=== PATIENT | male | born 1975 | race Caucasian/White ===

== ENCOUNTER 2022-11-10 11:54 | Inpatient (IN) | payer MEDICARE, OTHER ==
[~2022-11-10] VITALS: Ht 177.8 cm; Wt 70.3 kg
[2022-11-10] MEDS ORDERED: DIATR MEGLU/DIATRIZOATE SODIUM 30 ML BOTTLE ONE (12:15)
--- NOTE | 2022-11-10 12:16 | NUR ---
Pt arrived in the ED [facility] w/ c/o G-Tube malfunction. Pt denies pain on the stoma, presented swelling and redness. Resistance upon administration of water. Pt denies pain. Seen by Dr. Rose for MSE.
[2022-11-10] MEDS ORDERED: METO25TA6 GT (13:52)
[2022-11-10] MEDS ORDERED: ATOR40TA GT (13:52)
[2022-11-10] MEDS ORDERED: INSU100I19 SQ (13:52)
[2022-11-10] MEDS ORDERED: METF-494 GT (13:52)
[2022-11-10] MEDS ORDERED: MULT-594 GT (13:52)
[2022-11-10] MEDS ORDERED: INSU100V42 (13:52)
[2022-11-10] MEDS ORDERED: DOCU100C36 GT (13:52)
[2022-11-10] MEDS ORDERED: RISP1TAB97 PO (13:52)
[2022-11-10] MEDS ORDERED: PANT40TA49 GT (13:52)
[2022-11-10] MEDS ORDERED: CLOZ100T32 GT (13:52)
[2022-11-10] MEDS ORDERED: ALUM320O4 GT (13:52)
[2022-11-10] MEDS ORDERED: FERR325T28 GT (13:52)
[2022-11-10] MEDS ORDERED: GABA-532 GT (13:52)
[2022-11-10] MEDS ORDERED: OXCA150T5 GT (13:52)
[2022-11-10] MEDS ORDERED: ACET-2154 GT (13:52)
[2022-11-10] MEDS ORDERED: RISP2TAB85 GT (13:52)
[2022-11-10] MEDS ORDERED: LOSA25TA27 GT (13:52)
[2022-11-10 14:09] LABS: CREATININE 0.7 mg/dL (0.6-1.3); POTASSIUM 4.2 mmol/L (3.5-5.1)
--- NOTE | 2022-11-10 14:23 | NUR ---
Pt's sister Aster Burden called, phone # [phone]. Pt made aware.
[2022-11-10] MEDS ORDERED: PIPERACILLIN SODIUM/TAZOBACTAM 3.375 G in IV DEXTROSE 5% 50 ML IV ONE (14:30)
[2022-11-10] MEDS ORDERED: VANCOMYCIN IV 1,000 MG in IV DEXTROSE 5% 250 ML IV ONE (14:30)
[2022-11-10] MEDS ORDERED: IV NORMAL SALINE 1000 ML BAG IV ONE (14:30)
[2022-11-10] MEDS ORDERED: PIPERACILLIN/TAZOBACTAM/D5W 50 ML IV ONE (15:08)
[2022-11-10] MEDS ORDERED: VANCOMYCIN IV 200 ML ONE (15:08)
[2022-11-10 15:11] LABS: BILIRUBIN,DIRECT 0.1 mg/dL (0.0-0.2); BILIRUBIN,TOTAL 0.3 mg/dL (0.2-1.0); TOTAL PROTEIN, SERUM 8.5 g/dL (6.4-8.2)
[2022-11-10 15:24] LABS: HEMATOCRIT 26.3 % (36.7-47.1); MEAN CORPUSCULAR HEMOGLOBIN 26.4 uug (23.8-33.4); MEAN CORPUSCULAR VOLUME 81.5 fL (73.0-96.2); PLATELET COUNT (AUTO) 297 K/uL (152-348)
--- NOTE | 2022-11-10 16:29 | NUR ---
Gave report to [place] RN.
[2022-11-10] MEDS ORDERED: ACETAMINOPHEN 650 MG SUPP.RECT RC PRN (16:30)
[2022-11-10] MEDS ORDERED: ONDANSETRON 4 MG/2 ML VIAL IV PRN (16:30)
[2022-11-10] MEDS ORDERED: REMEDY ESSENTIAL ZINC PASTE 113 GM TP PRN (16:30)
[2022-11-10] MEDS ORDERED: DEXTROSE 50% 50 ML DISP.SYRIN IV PRN (16:45)
[2022-11-10] MEDS ORDERED: INSULIN REGULAR, HUMAN 300 UNIT/3 ML VIAL SQ PRN (16:45)
[2022-11-10 16:47] LABS: *BILIRUBIN,URIN NEGATIVE (NEGATIVE); *BLOOD, URINE NEGATIVE (NEGATIVE); *CLARITY,URINE CLEAR (CLEAR); *COLOR,URINE YELLOW (YELLOW); *KETONES,URINE NEGATIVE (NEGATIVE); *UROBILINOGEN,URINE 0.2 E.U./dl (NORMAL); LEUKOCYTE ESTERASE ,URINE NEGATIVE (NEGATIVE); NITRITE, URINE NEGATIVE (NEGATIVE); PH,URINE 7.5 (5.0-8.0); UGLUCOSE NEGATIVE (NEGATIVE)
--- NOTE | 2022-11-10 17:23 | NUR ---
Pt in stable condition, remained afebrile, V/S WML, AOx3. Transported to [place] to room 318 under the medical care of Ruperto Mckeon NP and received by [place] RN.
--- NOTE | 2022-11-10 17:23 | NUR ---
Pt's IV Vancomycin still infusing, endorsed to [place] RN.
--- NOTE | 2022-11-10 17:30 | NUR ---
Called and left a message to Aster Bertram (pt's sister) about pt's admission status.
[2022-11-10 17:56] VITALS: BP 133/83
--- NOTE | 2022-11-10 18:30 | NUR ---
Pt alert and oriented x 4. Pt denies any co pain. G tube clamped. Noted g tube stoma redness and swollen pix. Taken. Pt ambulatory to bathroom. with good balance. Discussed with pt that he is to have nothing by mouth per MD order. Pt verbalized understanding. Oriented pt on how to use call light for nurse. IV on left F/a Intact and flushing well. Started IVF as ordered. Call light is within reach.
[2022-11-10] MEDS: IV D5/ 0.9% NACL 1,000 ML IV PRN (18:59)
[2022-11-10] MEDS: BLOOD SUGAR DIAGNOSTIC 1 EACH STRIP VI SCH (19:10)
[2022-11-10] MEDS: CEFTRIAXONE 2 G in IV DEXTROSE 5% 100 ML IV SCH (20:56)
[2022-11-10] MEDS: levETIRAcetam IV 500 MG in IV DEXTROSE 5% 100 ML IV SCH (20:58)
[2022-11-10 21:04] VITALS: BP 146/80
[2022-11-10] MEDS: HEPARIN SODIUM,PORCINE 5,000 UNITS/ML VIAL SQ SCH (21:12)
[2022-11-11] MEDS: VANCOMYCIN IV 1,250 MG in IV DEXTROSE 5% 250 ML IV SCH ×3 (00:08→16:02)
[2022-11-11] MEDS: BLOOD SUGAR DIAGNOSTIC 1 EACH STRIP VI SCH ×5 (00:20→23:36)
[2022-11-11 04:28] VITALS: BP 105/49
[2022-11-11 07:14] LABS: HEMATOCRIT 27.5 % (36.7-47.1); MEAN CORPUSCULAR HEMOGLOBIN 26.8 uug (23.8-33.4); MEAN CORPUSCULAR VOLUME 81.2 fL (73.0-96.2); PLATELET COUNT (AUTO) 288 K/uL (152-348)
[2022-11-11 07:50] LABS: CREATININE 0.7 mg/dL (0.6-1.3); MAGNESIUM 1.6 mg/dL (1.8-2.4); PHOSPHOROUS 3.4 mg/dL (2.5-4.9)
[2022-11-11] MEDS: levETIRAcetam IV 500 MG in IV DEXTROSE 5% 100 ML IV SCH ×2 (10:17→21:18)
[2022-11-11] MEDS: PANTOPRAZOLE SODIUM 40 MG VIAL IV SCH (10:18)
[2022-11-11] MEDS: HEPARIN SODIUM,PORCINE 5,000 UNITS/ML VIAL SQ SCH ×2 (10:19→20:15)
[2022-11-11] MEDS: MAGNESIUM SULFATE/D5W 100 ML IV SCH ×2 (10:20→12:29)
--- NOTE | 2022-11-11 10:30 | NUR ---
Pt passed swallow eval and ST recommends puree for lunch.
[2022-11-11 11:50] VITALS: BP 109/74
[2022-11-11] MEDS ORDERED: DOCUSATE SODIUM 100 MG CAPSULE PO PRN (12:15)
[2022-11-11] MEDS ORDERED: ACETAMINOPHEN 325 MG TABLET PO PRN (12:15)
[2022-11-11] MEDS: IV D5/ 0.9% NACL 1,000 ML IV PRN (16:00)
[2022-11-11] MEDS: OXCARBAZEPINE 150 MG TABLET PO SCH (16:11)
[2022-11-11] MEDS: METOPROLOL TARTRATE 25 MG TABLET PO SCH (16:11)
[2022-11-11] MEDS: risperiDONE 2 MG TABLET PO SCH (16:12)
[2022-11-11] MEDS ORDERED: FERR300L GT (16:20)
[2022-11-11] MEDS ORDERED: METF-440 PO (16:20)
[2022-11-11] MEDS ORDERED: GABA250S2 GT (16:20)
[2022-11-11] MEDS ORDERED: GABAPENTIN 100 MG CAPSULE PO SCH (17:00)
[2022-11-11 17:40] VITALS: BP 110/70
[2022-11-11] MEDS ORDERED: CLOZAPINE 100 MG TABLET PO SCH (18:00)
--- NOTE | 2022-11-11 19:35 | NUR ---
Received Pt from Day shift. Pt is A&Ox and cooperative. Pt has esophagogastroduodenoscopy scheduled tomorrow but at an unknown time. Pt has no G-tube. Pt is NPO. Safety measures in place. Will continue to monitor.
[2022-11-11 20:00] VITALS: BP 127/78
[2022-11-11] MEDS: CEFTRIAXONE 2 G in IV DEXTROSE 5% 100 ML IV SCH (20:04)
[2022-11-11] MEDS: CLOZAPINE 100 MG TABLET PO SCH (21:00)
[2022-11-11] MEDS: ATORVASTATIN 40 MG TABLET PO SCH (21:00)
[2022-11-11] MEDS: GABAPENTIN 100 MG CAPSULE PO SCH (22:00)
[2022-11-12] MEDS: BLOOD SUGAR DIAGNOSTIC 1 EACH STRIP VI SCH ×3 (06:01→18:00)
[2022-11-12 07:20] LABS: HEMATOCRIT 27.2 % (36.7-47.1); MEAN CORPUSCULAR HEMOGLOBIN 26.9 uug (23.8-33.4); MEAN CORPUSCULAR VOLUME 82.2 fL (73.0-96.2); PLATELET COUNT (AUTO) 279 K/uL (152-348)
[2022-11-12 07:27] VITALS: BP 139/52
[2022-11-12 07:53] LABS: CREATININE 0.8 mg/dL (0.6-1.3); MAGNESIUM 1.6 mg/dL (1.8-2.4); PHOSPHOROUS 3.3 mg/dL (2.5-4.9); POTASSIUM 4.1 mmol/L (3.5-5.1)
[2022-11-12] MEDS: GABAPENTIN 100 MG CAPSULE PO SCH ×3 (08:05→22:00)
[2022-11-12] MEDS: LOSARTAN POTASSIUM 25 MG TABLET PO SCH (08:06)
[2022-11-12] MEDS: FERROUS SULFATE 300 MG/5 ML LIQUID UDC PO SCH (08:06)
[2022-11-12] MEDS: METOPROLOL TARTRATE 25 MG TABLET PO SCH ×2 (08:07→16:41)
[2022-11-12] MEDS: risperiDONE 1 MG TABLET PO SCH (08:07)
[2022-11-12] MEDS: OXCARBAZEPINE 150 MG TABLET PO SCH ×2 (08:08→16:41)
[2022-11-12] MEDS: PANTOPRAZOLE SODIUM 40 MG VIAL IV SCH (08:18)
[2022-11-12] MEDS: levETIRAcetam IV 500 MG in IV DEXTROSE 5% 100 ML IV SCH ×2 (08:18→21:42)
[2022-11-12] MEDS: HEPARIN SODIUM,PORCINE 5,000 UNITS/ML VIAL SQ SCH ×2 (08:19→21:00)
[2022-11-12] MEDS: MAGNESIUM SULFATE/D5W 100 ML IV SCH ×2 (09:30→11:07)
[2022-11-12 12:13] VITALS: BP 104/72
--- NOTE | 2022-11-12 14:00 | NUR ---
Notified Hospitalist Timothy that No scheduled EGD set by dr Bah who is covering dr Tejeda for today. Continue to Keep pt NPO as ordered and notified pt as well. Pt was upset that his EGD with PEG was not scheduled. Therapeutic communication implemented and effective to calm pt down.
[2022-11-12] MEDS: IV D5/ 0.9% NACL 1,000 ML IV PRN (14:55)
[2022-11-12] MEDS: risperiDONE 2 MG TABLET PO SCH (16:41)
[2022-11-12 20:00] VITALS: BP 138/80
[2022-11-12] MEDS: ATORVASTATIN 40 MG TABLET PO SCH (21:00)
[2022-11-12] MEDS: CLOZAPINE 100 MG TABLET PO SCH (21:00)
[2022-11-12] MEDS: CEFTRIAXONE 2 G in IV DEXTROSE 5% 100 ML IV SCH (21:42)
[2022-11-13 04:00] VITALS: BP 108/53
[2022-11-13] MEDS: GABAPENTIN 100 MG CAPSULE PO SCH ×3 (05:17→22:02)
[2022-11-13] MEDS: BLOOD SUGAR DIAGNOSTIC 1 EACH STRIP VI SCH ×4 (05:25→17:40)
[2022-11-13 07:02] LABS: HEMATOCRIT 28.6 % (36.7-47.1); MEAN CORPUSCULAR HEMOGLOBIN 27.1 uug (23.8-33.4); MEAN CORPUSCULAR VOLUME 81.7 fL (73.0-96.2); PLATELET COUNT (AUTO) 286 K/uL (152-348)
[2022-11-13 07:15] LABS: CREATININE 0.8 mg/dL (0.6-1.3); MAGNESIUM 1.6 mg/dL (1.8-2.4); PHOSPHOROUS 3.1 mg/dL (2.5-4.9)
[2022-11-13] MEDS: PANTOPRAZOLE SODIUM 40 MG VIAL IV SCH (08:46)
[2022-11-13] MEDS: levETIRAcetam IV 500 MG in IV DEXTROSE 5% 100 ML IV SCH ×2 (08:47→22:01)
[2022-11-13] MEDS: FERROUS SULFATE 300 MG/5 ML LIQUID UDC PO SCH (08:48)
[2022-11-13] MEDS: LOSARTAN POTASSIUM 25 MG TABLET PO SCH (08:48)
[2022-11-13] MEDS: METOPROLOL TARTRATE 25 MG TABLET PO SCH ×2 (08:48→17:39)
[2022-11-13] MEDS: OXCARBAZEPINE 150 MG TABLET PO SCH ×2 (08:49→17:38)
[2022-11-13] MEDS: risperiDONE 1 MG TABLET PO SCH (08:49)
[2022-11-13] MEDS: HEPARIN SODIUM,PORCINE 5,000 UNITS/ML VIAL SQ SCH ×2 (08:51→21:00)
[2022-11-13] MEDS: VANCOMYCIN IV 1,250 MG in IV DEXTROSE 5% 250 ML IV SCH ×2 (09:48→22:01)
[2022-11-13] MEDS: IV D5/ 0.9% NACL 1,000 ML IV PRN (09:56)
[2022-11-13 12:00] VITALS: BP 132/72
[2022-11-13] MEDS: MAGNESIUM SULFATE/D5W 100 ML IV SCH ×2 (12:33→13:37)
[2022-11-13 16:00] VITALS: BP 130/72
[2022-11-13] MEDS: risperiDONE 2 MG TABLET PO SCH (17:38)
--- NOTE | 2022-11-13 19:45 | NUR ---
RECEIVED REPORT FROM [facility] SHIFT RN. PATIENT IS ALERT & ORIENTED X4, AND SPEAKS [place]. VITAL SIGNS STABLE. PATIENT VOIDS ADEQUATELY. PATIENT TOLERATES PO AND IV MEDICATIONS. NO SIGNS AND SYMPTOMS OF NAUSEA OR VOMITING NOTED. PATIENT DENIES PAIN. PATIENT'S SISTER, SERG, CALLS FOR UPDATE. RN UPDATES SISTER REGARDING HIS CARE. RN REACHED OUT TO GI MD, TERRY, REGARDING PATIENT'S PROCEDURE. NO ANSWER WAS GIVEN TO RN. RN NOTIFIES CONTROL PANEL TESTER, DAVID, REGARDING NO RESPONSE. RN EXPLAINED TO PATIENT REGARDING GETTING IN TOUCH WITH GI MD. PATIENT VERBALIZED UNDERSTANDING. RN GAVE MAGNESIUM ORDERED. NO SIGNS AND SYMPTOMS OF HYPOGLYCEMIA. NO ACUTE DISTRESS. ALL NEEDS MET AT THIS TIME. ENDORSED CARE TO STEPHAN CARPIO, FOR CONTINUATION OF CARE.
[2022-11-13 20:00] VITALS: BP 145/78
[2022-11-13] MEDS: CEFTRIAXONE 2 G in IV DEXTROSE 5% 100 ML IV SCH (22:01)
[2022-11-13] MEDS: CLOZAPINE 100 MG TABLET PO SCH (22:02)
[2022-11-13] MEDS: ATORVASTATIN 40 MG TABLET PO SCH (22:02)
[2022-11-14] MEDS: BLOOD SUGAR DIAGNOSTIC 1 EACH STRIP VI SCH ×5 (00:02→23:59)
[2022-11-14] MEDS: IV D5/ 0.9% NACL 1,000 ML IV PRN (02:23)
[2022-11-14 04:00] VITALS: BP 119/73
--- NOTE | 2022-11-14 04:58 | NUR ---
Patient awake ,alert,and oriented x4. Abdominal dressing dry and intact. D5NS infusing at 75cc per hour into right forearm.No acute distress noted. Will continue to monitor..
[2022-11-14] MEDS: GABAPENTIN 100 MG CAPSULE PO SCH ×3 (05:51→22:43)
[2022-11-14] MEDS: VANCOMYCIN IV 1,250 MG in IV DEXTROSE 5% 250 ML IV SCH (05:51)
[2022-11-14 07:09] LABS: CREATININE 0.8 mg/dL (0.6-1.3); MAGNESIUM 1.6 mg/dL (1.8-2.4); POTASSIUM 3.4 mmol/L (3.5-5.1)
[2022-11-14] MEDS: levETIRAcetam IV 500 MG in IV DEXTROSE 5% 100 ML IV SCH ×2 (09:05→22:14)
[2022-11-14] MEDS: PANTOPRAZOLE SODIUM 40 MG VIAL IV SCH (09:05)
[2022-11-14] MEDS: METOPROLOL TARTRATE 25 MG TABLET PO SCH ×2 (09:09→17:54)
[2022-11-14] MEDS: FERROUS SULFATE 300 MG/5 ML LIQUID UDC PO SCH (09:10)
[2022-11-14] MEDS: risperiDONE 1 MG TABLET PO SCH (09:10)
[2022-11-14] MEDS: LOSARTAN POTASSIUM 25 MG TABLET PO SCH (09:10)
[2022-11-14] MEDS: HEPARIN SODIUM,PORCINE 5,000 UNITS/ML VIAL SQ SCH ×2 (09:14→22:56)
[2022-11-14] MEDS: OXCARBAZEPINE 150 MG TABLET PO SCH ×2 (09:15→17:50)
[2022-11-14 11:19] VITALS: BP 126/72
[2022-11-14] MEDS: POTASSIUM CHLORIDE 50 ML IV SCH ×2 (14:01→15:24)
[2022-11-14 15:03] VITALS: BP 121/67
[2022-11-14] MEDS: MAGNESIUM SULFATE/D5W 100 ML IV SCH ×2 (15:14→16:19)
[2022-11-14] MEDS ORDERED: LIDOCAINE-MPF 2% 5 ML VIAL IJ ONE (18:00)
[2022-11-14] MEDS ORDERED: ONDANSETRON 4 MG/2 ML VIAL IV ONE (18:00)
[2022-11-14] MEDS ORDERED: PROPOFOL 200 MG/20 ML BOTTLE IV ONE (18:00)
[2022-11-14] MEDS ORDERED: METOCLOPRAMIDE HCL 10 MG/2 ML VIAL IV ONE (18:00)
[2022-11-14] MEDS ORDERED: CEFAZOLIN 1 G VIAL IM ONE (18:00)
--- NOTE | 2022-11-14 19:30 | NUR ---
Received Pt from Day shift. Pt is currently not in the room due to him receiving a peg tube placement. Pt currently in OR. Safety measures in place. Will continue to monitor.
[2022-11-14 20:00] VITALS: BP 140/81
--- NOTE | 2022-11-14 21:30 | NUR ---
Pt returned to the unit @2124. Received report from HOG SCRAPER. Pt is A&Ox3 and cooperative. Pt has new Peg tube. Site is dry, clean, and intact. No abnormalities noted. Was told by HOG SCRAPER to resume tube feeding in the morning. Tube is ok to use for meds. Safety measure in place. Will continue to monitor.
[2022-11-14] MEDS: risperiDONE 2 MG TABLET PO SCH (22:43)
[2022-11-14] MEDS: CLOZAPINE 100 MG TABLET PO SCH (22:44)
[2022-11-14] MEDS: ATORVASTATIN 40 MG TABLET PO SCH (22:44)
[2022-11-14] MEDS: CEFTRIAXONE 2 G in IV DEXTROSE 5% 100 ML IV SCH (23:01)
[2022-11-15 04:00] VITALS: BP 146/85
[2022-11-15] MEDS: BLOOD SUGAR DIAGNOSTIC 1 EACH STRIP VI SCH ×2 (05:43→12:00)
[2022-11-15] MEDS: GABAPENTIN 100 MG CAPSULE PO SCH (06:11)
--- NOTE | 2022-11-15 06:38 | NUR ---
End of Shift Note: Pt is A&Ox3 and cooperative. Pt has new Peg tube. Site is dry, clean, and intact. No abnormalities noted. Pt urinated 600mL after procedure. Safety measure in place. Will continue to monitor.
[2022-11-15 07:15] LABS: CREATININE 0.8 mg/dL (0.6-1.3); POTASSIUM 3.6 mmol/L (3.5-5.1)
[2022-11-15] MEDS: LOSARTAN POTASSIUM 25 MG TABLET PO SCH (09:00)
[2022-11-15] MEDS ORDERED: VANCOMYCIN IV 500 MG in IV DEXTROSE 5% 100 ML IV ONE (09:00)
[2022-11-15] MEDS: METOPROLOL TARTRATE 25 MG TABLET PO SCH (09:00)
[2022-11-15] MEDS ORDERED: GLUCERNA 1.2 1000ML LIQUID GT SCH (10:30)
[2022-11-15] MEDS: levETIRAcetam IV 500 MG in IV DEXTROSE 5% 100 ML IV SCH (10:41)
[2022-11-15] MEDS: FERROUS SULFATE 300 MG/5 ML LIQUID UDC PO SCH (10:41)
[2022-11-15] MEDS: PANTOPRAZOLE SODIUM 40 MG VIAL IV SCH (10:46)
[2022-11-15] MEDS: risperiDONE 1 MG TABLET PO SCH (10:47)
[2022-11-15] MEDS: OXCARBAZEPINE 150 MG TABLET PO SCH (10:50)
[2022-11-15 11:53] VITALS: BP 95/56
[2022-11-15 15:15] VITALS: BP 115/73
--- NOTE | 2022-11-15 17:07 | NUR ---
Pt stable started peg feeding tolerated same . Discharged back to [facility]
== END 2022-11-15 16:45 | DRG 394 ==
LOC: ER 11:57 → MEDSURG3 16:53
PROVIDERS: ADMIT Nurse Practitioner Family; ATTEND Nurse Practitioner Acute Care
PROC: 0D738ZZ Dilation of Lower Esophagus, Via Natural or Artificial Opening Endoscopic (ICD-10-PCS; principal; 2022-11-14)
PROC: 0DH63UZ Insertion of Feeding Device into Stomach, Percutaneous Approach (ICD-10-PCS; 2022-11-14)
DX: K94.22 Gastrostomy infection (principal); L03.311 Cellulitis of abdominal wall; K22.2 Esophageal obstruction; D64.9 Anemia, unspecified; E78.5 Hyperlipidemia, unspecified; K29.70 Gastritis, unspecified, without bleeding; Z86.711 Personal history of pulmonary embolism; N20.0 Calculus of kidney; K21.9 Gastro-esophageal reflux disease without esophagitis; Z86.718 Personal history of other venous thrombosis and embolism; I10 Essential (primary) hypertension; Z94.7 Corneal transplant status; E11.42 Type 2 diabetes mellitus with diabetic polyneuropathy; F20.9 Schizophrenia, unspecified; G40.909 Epilepsy, unspecified, not intractable, without status epilepticus; Z20.822 Contact with and (suspected) exposure to COVID-19; R13.10 Dysphagia, unspecified; Y84.8 Other medical procedures as the cause of abnormal reaction of the patient, or of later complication, without mention of misadventure at the time of the procedure; Y73.8 Miscellaneous gastroenterology and urology devices associated with adverse incidents, not elsewhere classified; Y92.129 Unspecified place in nursing home as the place of occurrence of the external cause
CPT/HCPCS: 36415; 71045; 74018; 83550; 83605; 83735; 84100; 85025; 85730; 87040; 93005; A4663; C1726; C9113; G0378; J0690; J0696; J1644; J1815; J1953; J2405; J2543; J2765; J3370; J3475; J3480; J3490; J7040; J7042; J7050; Q9963